=== PATIENT | female | born 1950 | race Caucasian/White ===

== ENCOUNTER → 2016-09-17 | Outpatient (REF) | payer MEDICARE, OTHER ==
[~2016-09-17] MED LIST: COUM2.5T11 PO; LEVO100T5 PO; OXYC-299 PO; TRAM50TA2 PO
== END ==
LOC: M LABDRAW1 11:39
PROVIDERS: ATTEND Internal Medicine Endocrinology, Diabetes & Metabolism
DX: E89.0 Postprocedural hypothyroidism (principal)

== ENCOUNTER → 2016-11-03 | Outpatient (REF) | payer MEDICARE, OTHER ==
[~2016-11-03] MED LIST changes: -COUM2.5T11 PO; +COUM2.5T17 PO; +OXYC-141 PO; -OXYC-299 PO
== END ==
LOC: M LABDRAW1 11:33
PROVIDERS: ATTEND Internal Medicine Endocrinology, Diabetes & Metabolism
DX: E89.0 Postprocedural hypothyroidism (principal)

== ENCOUNTER → 2017-02-24 | Outpatient (REF) | payer MEDICARE, OTHER | LOC: M LABDRAW1 13:15 | PROVIDERS: ATTEND Internal Medicine Endocrinology, Diabetes & Metabolism | DX: E89.0 Postprocedural hypothyroidism (principal) ==

== ENCOUNTER → 2017-04-22 | Outpatient (REF) | payer MEDICARE, OTHER ==
[2017-04-28 00:07] LABS: THYROID STIMULATING IMMUNOGLOB 531 % (0-139)
== END ==
LOC: M LABDRAW1 11:48
DX: E05.00 Thyrotoxicosis with diffuse goiter without thyrotoxic crisis or storm (principal)
CPT/HCPCS: 84445

== ENCOUNTER → 2017-07-06 | Outpatient (REF) | payer MEDICARE, OTHER | LOC: M LABDRAW1 15:35 | DX: E07.9 Disorder of thyroid, unspecified (principal) | CPT/HCPCS: 84443 ==

== ENCOUNTER → 2017-07-06 | Outpatient (REF) | payer MEDICARE, OTHER | LOC: M LABDRAW1 15:37 | DX: E89.0 Postprocedural hypothyroidism (principal) ==

== ENCOUNTER → 2017-09-06 | Outpatient (REF) | payer MEDICARE, OTHER ==
[2017-09-08 00:06] LABS: THYROID STIMULATING IMMUNOGLOB 2.43 IU/L (0.00-0.55)
== END ==
LOC: M LABDRAW1 11:04
DX: H57.8 Other specified disorders of eye and adnexa (principal)
CPT/HCPCS: 84445

== ENCOUNTER → 2017-11-17 | Outpatient (REF) | payer MEDICARE, OTHER ==
[2017-11-17 14:23] LABS: THYROID STIMULATING HORMONE 0.844 uIU/ML (0.358-3.740)
== END ==
LOC: M LABDRAW1 13:21
DX: E89.0 Postprocedural hypothyroidism (principal)

== ENCOUNTER → 2017-11-17 | Outpatient (REF) | payer MEDICARE, OTHER ==
[2017-11-19 00:11] LABS: THYROID STIMULATING IMMUNOGLOB 2.02 IU/L (0.00-0.55)
== END ==
LOC: M LABDRAW1 13:24
DX: E05.00 Thyrotoxicosis with diffuse goiter without thyrotoxic crisis or storm (principal); E89.0 Postprocedural hypothyroidism
CPT/HCPCS: 84443

== ENCOUNTER → 2018-03-15 | Outpatient (REF) | payer MEDICARE, OTHER ==
[2018-03-15 15:49] LABS: HEMATOCRIT 41.2 % (36.0-47.0); HEMOGLOBIN 13.8 g/dl (12.0-15.5); MEAN CORPUSCULAR HEMOGLOBIN 31.3 pg (27.0-33.0); MEAN CORPUSCULAR HGB CONC 33.5 g/dl (32.0-36.5); MEAN CORPUSCULAR VOLUME 93.4 fl (80.0-96.0); RED BLOOD COUNT 4.41 10^6/uL (4.00-5.40); RED CELL DISTRIBUTION WIDTH 12.4 % (11.5-14.5); WHITE BLOOD COUNT 5.3 10^3/uL (4.0-10.0)
[2018-03-15 16:12] LABS: ALBUMIN 4.1 GM/DL (3.2-5.2); ALBUMIN/GLOBULIN RATIO 1.28 (1.00-1.93); ALKALINE PHOSPHATASE 67 U/L (45-117); ALT/SGPT 28 U/L (12-78); ANION GAP 2 MEQ/L (8-16); AST/SGOT 18 U/L (7-37); BILIRUBIN,TOTAL 0.8 MG/DL (0.2-1.0); BLOOD UREA NITROGEN 20 MG/DL (7-18); CARBON DIOXIDE LEVEL 32 MEQ/L (21-32); CHLORIDE LEVEL 107 MEQ/L (98-107); CHOLESTEROL LEVEL 240 MG/DL (<200); CREATININE FOR GFR 0.66 MG/DL (0.55-1.30); GLOMERULAR FILTRATION RATE > 60.0 (>45); GLUCOSE, FASTING 96 MG/DL (70-100); HDL CHOLESTEROL 64 MG/DL (>40); LDL CHOLESTEROL 146 MG/DL (<100); NON-HDL-C 176 MG/DL; POTASSIUM SERUM 4.1 MEQ/L (3.5-5.1); SODIUM LEVEL 141 MEQ/L (136-145); TOTAL PROTEIN 7.3 GM/DL (6.4-8.2); TRIGLYCERIDES LEVEL 152 MG/DL (<150)
[2018-03-15 16:21] LABS: POS COUNT POS FLAG; SUSPECT SAMPLE POS FLAG
[2018-03-15 17:12] LABS: TOTAL 25(OH) VITAMIN D 20.6 NG/ML (30.0-100.0)
== END ==
LOC: M SFHCPLAZ 14:39
DX: E78.00 Pure hypercholesterolemia, unspecified (principal); E05.00 Thyrotoxicosis with diffuse goiter without thyrotoxic crisis or storm; M85.80 Other specified disorders of bone density and structure, unspecified site; E03.9 Hypothyroidism, unspecified; R05 Cough; Z23 Encounter for immunization
CPT/HCPCS: 80053

== ENCOUNTER → 2018-03-15 | Outpatient (REF) | payer MEDICARE, OTHER ==
[2018-03-18 00:06] LABS: THYROID STIMULATING IMMUNOGLOB 1.87 IU/L (0.00-0.55)
== END ==
LOC: M LABDRAWP 15:42
DX: E07.9 Disorder of thyroid, unspecified (principal); E05.00 Thyrotoxicosis with diffuse goiter without thyrotoxic crisis or storm (principal); Z23 Encounter for immunization; E78.00 Pure hypercholesterolemia, unspecified; M85.80 Other specified disorders of bone density and structure, unspecified site; E03.9 Hypothyroidism, unspecified; R05 Cough
CPT/HCPCS: 80053; 84445

== ENCOUNTER → 2018-06-20 | Outpatient (REF) | payer MEDICARE, OTHER ==
[2018-06-20 19:25] LABS: FREE T4 0.99 NG/DL (0.76-1.46); THYROID STIMULATING HORMONE 1.93 uIU/ML (0.358-3.740)
== END ==
LOC: M LABDRAW1 17:38
PROVIDERS: ATTEND Internal Medicine Endocrinology, Diabetes & Metabolism
DX: E89.0 Postprocedural hypothyroidism (principal)

== ENCOUNTER → 2018-10-11 | Outpatient (REF) | payer MEDICARE, OTHER | LOC: M LAB REF 15:38 | PROVIDERS: ATTEND Ophthalmology | DX: E05.00 Thyrotoxicosis with diffuse goiter without thyrotoxic crisis or storm (principal) ==

== ENCOUNTER → 2019-02-07 | Outpatient (REF) | payer MEDICARE, OTHER | LOC: M LABDRAW1 09:40 | PROVIDERS: ATTEND Internal Medicine Endocrinology, Diabetes & Metabolism | DX: E89.0 Postprocedural hypothyroidism (principal) ==

== ENCOUNTER → 2019-03-27 | Outpatient (REF) | payer MEDICARE, OTHER ==
[2019-03-27 12:22] LABS: HEMATOCRIT 39.2 % (36.0-47.0); HEMOGLOBIN 12.8 g/dl (12.0-15.5); MEAN CORPUSCULAR HEMOGLOBIN 31.3 pg (27.0-33.0); MEAN CORPUSCULAR HGB CONC 32.7 g/dl (32.0-36.5); MEAN CORPUSCULAR VOLUME 95.8 fl (80.0-96.0); RED BLOOD COUNT 4.09 10^6/uL (4.00-5.40); WHITE BLOOD COUNT 4.3 10^3/uL (4.0-10.0)
[2019-03-27 12:28] LABS: ALBUMIN 3.7 GM/DL (3.2-5.2); ALT/SGPT 23 U/L (12-78); BILIRUBIN,TOTAL 0.7 MG/DL (0.2-1.0); BLOOD UREA NITROGEN 16 MG/DL (7-18); CALCIUM LEVEL 8.1 MG/DL (8.8-10.2); CARBON DIOXIDE LEVEL 29 MEQ/L (21-32); CHLORIDE LEVEL 109 MEQ/L (98-107); CHOLESTEROL LEVEL 217 MG/DL (<200); CHOLESTEROL RISK RATIO 2.782 (<5); CREATININE FOR GFR 0.59 MG/DL (0.55-1.30); GLOMERULAR FILTRATION RATE > 60.0 (>39); GLUCOSE, FASTING 103 MG/DL (70-100); HDL CHOLESTEROL 78 MG/DL (>40); LDL CHOLESTEROL 123 MG/DL (<100); NON-HDL-C 139 MG/DL; SODIUM LEVEL 141 MEQ/L (136-145); TOTAL PROTEIN 6.8 GM/DL (6.4-8.2); TRIGLYCERIDES LEVEL 80 MG/DL (<150)
[2019-03-27 13:17] LABS: TOTAL 25(OH) VITAMIN D 21.2 NG/ML (30.0-100.0)
== END ==
LOC: M LABDRAW1 12:04
PROVIDERS: ATTEND Internal Medicine
DX: E78.00 Pure hypercholesterolemia, unspecified (principal); M85.80 Other specified disorders of bone density and structure, unspecified site

== ENCOUNTER → 2019-07-03 | Outpatient (REF) | payer MEDICARE, OTHER, BC | LOC: M LABDRAW1 12:57 | PROVIDERS: ATTEND Ophthalmology | DX: E05.00 Thyrotoxicosis with diffuse goiter without thyrotoxic crisis or storm (principal) ==

== ENCOUNTER → 2019-10-10 | Outpatient (CLI) | payer MEDICARE, OTHER, BC | LOC: M WUC 10:32 | PROVIDERS: ATTEND Internal Medicine Endocrinology, Diabetes & Metabolism | DX: E89.0 Postprocedural hypothyroidism (principal) ==

== ENCOUNTER → 2020-02-29 | Outpatient (CLI) | payer MEDICARE, OTHER, BC | LOC: M WUC 11:23 | PROVIDERS: ATTEND Ophthalmology | DX: E05.00 Thyrotoxicosis with diffuse goiter without thyrotoxic crisis or storm (principal) ==

== ENCOUNTER 2020-04-05 10:57 | Outpatient (CLI) | payer MEDICARE, BC, OTHER ==
[2020-04-05] MEDS ORDERED: TEPROTUMUMAB TRBW IV ONE (11:00)
[2020-04-05] MEDS ORDERED: NS IV ONE (11:00)
[2020-04-05] MEDS ORDERED: methylPREDNISolone 250 MG in D5W 100 ML IV PRN (11:00)
[2020-04-05 11:51] VITALS: BP 166/76
[2020-04-05 14:07] VITALS: BP 153/70
== END 2020-04-05 14:09 | disposition home or self-care (01) ==
LOC: M INFU 10:57
PROVIDERS: ATTEND Ophthalmology
DX: H05.242 Constant exophthalmos, left eye (principal)
CPT/HCPCS: 96365; J3241

== ENCOUNTER → 2020-04-29 | Outpatient (CLI) | payer MEDICARE, OTHER, BC | LOC: M WUC 14:41 | PROVIDERS: ATTEND Internal Medicine Endocrinology, Diabetes & Metabolism | DX: E89.0 Postprocedural hypothyroidism (principal) ==

== ENCOUNTER 2020-08-09 08:03 | Outpatient (CLI) | payer MEDICARE, BC, OTHER ==
[~2020-08-09 08:03] MED LIST changes: +NS IV ONE; +TEPROTUMUMAB TRBW IV ONE; +methylPREDNISolone 250 MG in D5W 100 ML IV PRN
[2020-08-09 08:33] VITALS: BP 174/100
[2020-08-09] MEDS ORDERED: PRED5PAK PO (08:46)
[2020-08-09 09:34] VITALS: BP 145/79
[2020-08-09 10:28] VITALS: BP 158/78
[2020-08-09 11:20] VITALS: BP 175/83
== END 2020-08-09 11:20 | disposition home or self-care (01) ==
LOC: M INFU 08:03
PROVIDERS: ATTEND Ophthalmology
DX: H05.242 Constant exophthalmos, left eye (principal)
CPT/HCPCS: 96365; J3241

== ENCOUNTER 2020-08-30 08:06 | Outpatient (CLI) | payer MEDICARE, BC, OTHER ==
[~2020-08-30] VITALS: Ht 162.6 cm; Wt 74.5 kg
[~2020-08-30 08:06] MED LIST changes: +PRED5PAK PO
[2020-08-30 08:30] VITALS: BP 174/80
[2020-08-30 10:36] VITALS: BP 158/80
== END 2020-08-30 10:40 | disposition home or self-care (01) ==
LOC: M INFU 08:06
PROVIDERS: ATTEND Ophthalmology
DX: H05.242 Constant exophthalmos, left eye (principal)
CPT/HCPCS: 96365; J3241

== ENCOUNTER 2020-09-20 08:23 | Outpatient (CLI) | payer MEDICARE, BC, OTHER ==
[~2020-09-20] VITALS: Ht 162.6 cm; Wt 72.7 kg
[2020-09-20 08:25] VITALS: BP 173/82
[2020-09-20 10:30] VITALS: BP 158/78
== END 2020-09-20 10:30 | disposition home or self-care (01) ==
LOC: M INFU 08:23
PROVIDERS: ATTEND Ophthalmology
DX: H05.242 Constant exophthalmos, left eye (principal)
CPT/HCPCS: 96365; J3241

== ENCOUNTER 2020-10-11 07:36 | Outpatient (CLI) | payer MEDICARE, BC, OTHER ==
[~2020-10-11] VITALS: Ht 162.6 cm; Wt 72.6 kg
[2020-10-11] MEDS ORDERED: methylPREDNISolone 250 MG in D5W 100 ML IV ONE (08:00)
[2020-10-11] MEDS ORDERED: TEPROTUMUMAB TRBW IV ONE (08:00)
[2020-10-11] MEDS ORDERED: NS IV ONE (08:00)
[2020-10-11 08:20] VITALS: BP 148/90
== END 2020-10-11 10:15 | disposition home or self-care (01) ==
LOC: M INFU 07:36
PROVIDERS: ATTEND Ophthalmology
DX: H05.242 Constant exophthalmos, left eye (principal); E78.00 Pure hypercholesterolemia, unspecified; Z11.59 Encounter for screening for other viral diseases; E89.0 Postprocedural hypothyroidism
CPT/HCPCS: 36415; 80053; 80061; 83519; 84443; 84445; 85025; 96413; G0472; J3241

== ENCOUNTER → 2020-10-11 | Outpatient (CLI) | payer MEDICARE, BC, OTHER ==
[~2020-10-11] MED LIST changes: -NS IV ONE; -TEPROTUMUMAB TRBW IV ONE; -methylPREDNISolone 250 MG in D5W 100 ML IV PRN
[2020-10-15 16:09] LABS: THYROID STIMULATING IMMUNOGLOB 0.14 IU/L (0.00-0.55); TSH RECEPTOR ASSAY <1.10 IU/L (0.00-1.75)
== END ==
LOC: M LAB 07:40
PROVIDERS: ATTEND Internal Medicine Endocrinology, Diabetes & Metabolism
DX: E89.0 Postprocedural hypothyroidism (principal)

== ENCOUNTER → 2020-10-11 | Outpatient (CLI) | payer MEDICARE, BC, OTHER ==
[2020-10-11 09:18] LABS: BASO % 0.2 % (0.0-1.0); EOS # 0.1 10^3/uL (0.0-0.5); EOS % 1.5 % (0.0-3.0); HEMOGLOBIN 13.3 g/dl (12.0-15.5); LYMPH # 1.4 10^3/uL (1.5-5.0); LYMPH % 25.6 % (24.0-44.0); MEAN CORPUSCULAR HEMOGLOBIN 31.7 pg (27.0-33.0); MEAN CORPUSCULAR HGB CONC 33.3 g/dl (32.0-36.5); MEAN CORPUSCULAR VOLUME 95.2 fl (80.0-96.0); MONO # 0.4 10^3/uL (0.0-0.8); MONO % 6.5 % (2.0-8.0); NEUTROPHILS # 3.6 10^3/uL (1.5-8.5); NEUTROPHILS % 65.6 % (36.0-66.0); WHITE BLOOD COUNT 5.4 10^3/uL (4.0-10.0)
[2020-10-11 09:44] LABS: ALT/SGPT 32 U/L (12-78); BILIRUBIN,TOTAL 0.6 MG/DL (0.2-1.0); BLOOD UREA NITROGEN 23 MG/DL (7-18); CALCIUM LEVEL 8.5 MG/DL (8.8-10.2); CARBON DIOXIDE LEVEL 31 MEQ/L (21-32); CHLORIDE LEVEL 105 MEQ/L (98-107); CHOLESTEROL LEVEL 205 MG/DL (<200); CHOLESTEROL RISK RATIO 2.928 (<5); CREATININE FOR GFR 0.63 MG/DL (0.55-1.30); GLOMERULAR FILTRATION RATE > 60.0 (>39); GLUCOSE, FASTING 122 MG/DL (70-100); HDL CHOLESTEROL 70 MG/DL (>40); LDL CHOLESTEROL 122 MG/DL (<100); NON-HDL-C 135 MG/DL; SODIUM LEVEL 139 MEQ/L (136-145); TOTAL PROTEIN 7.2 GM/DL (6.4-8.2); TRIGLYCERIDES LEVEL 66 MG/DL (<150)
== END ==
LOC: M LAB 07:38
PROVIDERS: ATTEND Internal Medicine
DX: E78.00 Pure hypercholesterolemia, unspecified (principal); Z11.59 Encounter for screening for other viral diseases; E03.9 Hypothyroidism, unspecified
CPT/HCPCS: 36415; 80053; 80061; 85025; G0472

== ENCOUNTER 2020-11-01 08:18 | Outpatient (CLI) | payer MEDICARE, BC, OTHER ==
[~2020-11-01] VITALS: Ht 162.6 cm; Wt 72.0 kg
[~2020-11-01 08:18] MED LIST changes: +NS IV ONE; +TEPROTUMUMAB TRBW IV ONE; +methylPREDNISolone 250 MG in D5W 100 ML IV PRN
[2020-11-01 08:35] VITALS: BP 147/73
[2020-11-01 08:58] VITALS: BP 147/73
[2020-11-01 11:02] VITALS: BP 154/81
== END 2020-11-01 11:00 | disposition home or self-care (01) ==
LOC: M INFU 08:18
PROVIDERS: ATTEND Ophthalmology
DX: H05.242 Constant exophthalmos, left eye (principal)
CPT/HCPCS: 96365; J3241

== ENCOUNTER 2020-11-22 08:20 | Outpatient (CLI) | payer MEDICARE, BC, OTHER ==
[~2020-11-22] VITALS: Ht 162.6 cm; Wt 72.0 kg
[2020-11-22 08:20] VITALS: BP 162/90
[2020-11-22 08:39] VITALS: BP 162/90
[2020-11-22 10:52] VITALS: BP 159/72
== END 2020-11-22 10:55 | disposition home or self-care (01) ==
LOC: M INFU 08:20
PROVIDERS: ATTEND Ophthalmology
DX: H05.242 Constant exophthalmos, left eye (principal)
CPT/HCPCS: 96365; J3241

== ENCOUNTER 2020-12-13 08:27 | Outpatient (CLI) | payer MEDICARE, BC, OTHER ==
[~2020-12-13] VITALS: Ht 162.6 cm; Wt 75.0 kg
[2020-12-13 08:30] VITALS: BP 168/88
[2020-12-13 10:43] VITALS: BP 142/76
== END 2020-12-13 11:20 | disposition home or self-care (01) ==
LOC: M INFU 08:27
PROVIDERS: ATTEND Ophthalmology
DX: H05.242 Constant exophthalmos, left eye (principal)
CPT/HCPCS: 96365; J3241

== ENCOUNTER → 2021-02-06 | Outpatient (CLI) | payer MEDICARE, OTHER, BC ==
[~2021-02-06] MED LIST changes: -NS IV ONE; -TEPROTUMUMAB TRBW IV ONE; -methylPREDNISolone 250 MG in D5W 100 ML IV PRN
[2021-02-08 06:09] LABS: THYROID STIMULATING IMMUNOGLOB 0.16 IU/L (0.00-0.55); TSH RECEPTOR ASSAY <1.10 IU/L (0.00-1.75)
== END ==
LOC: M WUC 09:33
PROVIDERS: ATTEND Internal Medicine Endocrinology, Diabetes & Metabolism
DX: H05.89 Other disorders of orbit (principal)

== ENCOUNTER → 2021-04-09 | Outpatient (CLI) | payer MEDICARE, OTHER, BC ==
[2021-04-09 12:34] LABS: ALBUMIN 3.7 GM/DL (3.2-5.2); ALT/SGPT 36 U/L (12-78); BILIRUBIN,TOTAL 0.7 MG/DL (0.2-1.0); BLOOD UREA NITROGEN 18 MG/DL (7-18); CALCIUM LEVEL 8.8 MG/DL (8.8-10.2); CARBON DIOXIDE LEVEL 31 MEQ/L (21-32); CHLORIDE LEVEL 109 MEQ/L (98-107); CHOLESTEROL LEVEL 184 MG/DL (<200); CHOLESTEROL RISK RATIO 2.875 (<5); CREATININE FOR GFR 0.64 MG/DL (0.55-1.30); GLOMERULAR FILTRATION RATE > 60.0 (>39); GLUCOSE, FASTING 107 MG/DL (70-100); HDL CHOLESTEROL 64 MG/DL (>40); LDL CHOLESTEROL 105 MG/DL (<100); NON-HDL-C 120 MG/DL; POTASSIUM SERUM 4.6 MEQ/L (3.5-5.1); SODIUM LEVEL 143 MEQ/L (136-145); TRIGLYCERIDES LEVEL 74 MG/DL (<150)
== END ==
LOC: M WUC 08:58
PROVIDERS: ATTEND Nurse Practitioner Adult Health
DX: E78.00 Pure hypercholesterolemia, unspecified (principal)

== ENCOUNTER → 2021-08-13 | Outpatient (CLI) | payer MEDICARE, OTHER, BC | LOC: M PLALAB 13:37 | PROVIDERS: ATTEND Internal Medicine Endocrinology, Diabetes & Metabolism | DX: M05.89 Other rheumatoid arthritis with rheumatoid factor of multiple sites (principal) ==

== ENCOUNTER 2021-09-05 08:47 | Outpatient (CLI) | payer MEDICARE, BC, OTHER ==
[~2021-09-05] VITALS: Ht 162.6 cm; Wt 73.6 kg
[~2021-09-05 08:47] MED LIST changes: +NS IV ONE; +TEPROTUMUMAB TRBW IV ONE
[2021-09-05 09:00] VITALS: BP 180/95
[2021-09-05] MEDS ORDERED: TEPROTUMUMAB TRBW IV ONE (10:30)
[2021-09-05] MEDS ORDERED: NS IV ONE (10:30)
[2021-09-05 12:25] VITALS: BP 168/81
== END 2021-09-05 12:25 | disposition home or self-care (01) ==
LOC: M INFU 08:47
PROVIDERS: ATTEND Ophthalmology Ophthalmic Plastic and Reconstructive Surgery
DX: E05.00 Thyrotoxicosis with diffuse goiter without thyrotoxic crisis or storm (principal)
CPT/HCPCS: 96365; 96366; J3241

== ENCOUNTER 2021-09-26 13:14 | Outpatient (CLI) | payer MEDICARE, BC, OTHER ==
[~2021-09-26] VITALS: Ht 165.1 cm; Wt 73.6 kg
[2021-09-26 13:20] VITALS: BP 170/77
[2021-09-26 15:10] VITALS: BP 164/77
== END 2021-09-26 15:15 | disposition home or self-care (01) ==
LOC: M INFU 13:14
PROVIDERS: ATTEND Ophthalmology Ophthalmic Plastic and Reconstructive Surgery
DX: E05.00 Thyrotoxicosis with diffuse goiter without thyrotoxic crisis or storm (principal)
CPT/HCPCS: 96365; J3241

== ENCOUNTER 2021-10-17 11:50 | Outpatient (CLI) | payer MEDICARE, BC, OTHER ==
[~2021-10-17] VITALS: Ht 165.1 cm; Wt 73.6 kg
[2021-10-17 11:50] VITALS: BP 165/84
[2021-10-17] MEDS ORDERED: VITAMIN D PO (12:02)
[2021-10-17 13:40] VITALS: BP 176/78
== END 2021-10-17 13:40 | disposition home or self-care (01) ==
LOC: M INFU 11:50
PROVIDERS: ATTEND Ophthalmology Ophthalmic Plastic and Reconstructive Surgery
DX: E05.00 Thyrotoxicosis with diffuse goiter without thyrotoxic crisis or storm (principal)
CPT/HCPCS: 96365; J3241

== ENCOUNTER → 2021-10-28 | Outpatient (REF) | payer MEDICARE, BC, OTHER ==
[~2021-10-28] MED LIST changes: -NS IV ONE; -TEPROTUMUMAB TRBW IV ONE; +VITAMIN D PO
[2021-10-28 12:44] LABS: BASO % 0.2 % (0.0-1.0); EOS # 0.1 10^3/uL (0.0-0.5); EOS % 1.7 % (0.0-3.0); HEMATOCRIT 41.1 % (36.0-47.0); HEMOGLOBIN 13.5 g/dl (12.0-15.5); LYMPH # 1.5 10^3/uL (1.5-5.0); LYMPH % 32.6 % (24.0-44.0); MEAN CORPUSCULAR HEMOGLOBIN 31.1 pg (27.0-33.0); MEAN CORPUSCULAR HGB CONC 32.8 g/dl (32.0-36.5); MEAN CORPUSCULAR VOLUME 94.7 fl (80.0-96.0); MONO # 0.4 10^3/uL (0.0-0.8); MONO % 9.1 % (2.0-8.0); NEUTROPHILS # 2.6 10^3/uL (1.5-8.5); NEUTROPHILS % 56.2 % (36.0-66.0); RED BLOOD COUNT 4.34 10^6/uL (4.00-5.40); WHITE BLOOD COUNT 4.6 10^3/uL (4.0-10.0)
[2021-10-28 14:20] LABS: ALBUMIN 3.9 GM/DL (3.2-5.2); ALT/SGPT 41 U/L (12-78); BILIRUBIN,TOTAL 1.3 MG/DL (0.2-1.0); BLOOD UREA NITROGEN 19 MG/DL (7-18); CALCIUM LEVEL 9.2 MG/DL (8.8-10.2); CARBON DIOXIDE LEVEL 28 MEQ/L (21-32); CHLORIDE LEVEL 107 MEQ/L (98-107); CREATININE FOR GFR 0.75 MG/DL (0.55-1.30); GLOMERULAR FILTRATION RATE > 60.0 (>39); GLUCOSE, FASTING 120 MG/DL (70-100); POTASSIUM SERUM 4.2 MEQ/L (3.5-5.1); SODIUM LEVEL 139 MEQ/L (136-145); TOTAL PROTEIN 7.4 GM/DL (6.4-8.2)
== END ==
LOC: M WUC 08:59
PROVIDERS: ATTEND Internal Medicine
DX: E78.00 Pure hypercholesterolemia, unspecified (principal); Z87.442 Personal history of urinary calculi

== ENCOUNTER 2021-11-07 08:25 | Outpatient (CLI) | payer MEDICARE, BC, OTHER ==
[~2021-11-07] VITALS: Ht 195.6 cm; Wt 73.6 kg
[2021-11-07 08:25] VITALS: BP 180/80
[~2021-11-07 08:25] MED LIST changes: +NS IV ONE; +TEPROTUMUMAB TRBW IV ONE
[2021-11-07 10:45] VITALS: BP 180/80
== END 2021-11-11 10:45 | disposition home or self-care (01) ==
LOC: M INFU 08:25
PROVIDERS: ATTEND Ophthalmology Ophthalmic Plastic and Reconstructive Surgery
DX: E05.00 Thyrotoxicosis with diffuse goiter without thyrotoxic crisis or storm (principal)
CPT/HCPCS: 96365; J3241

== ENCOUNTER → 2021-11-26 | Outpatient (CLI) | payer MEDICARE, BC, OTHER ==
[~2021-11-26] MED LIST changes: -NS IV ONE; -TEPROTUMUMAB TRBW IV ONE
[2021-11-26 18:03] LABS: BASO % 0.2 % (0.0-1.0); EOS # 0.1 10^3/uL (0.0-0.5); EOS % 1.5 % (0.0-3.0); HEMATOCRIT 39.6 % (36.0-47.0); HEMOGLOBIN 13.1 g/dl (12.0-15.5); LYMPH # 1.7 10^3/uL (1.5-5.0); LYMPH % 36.4 % (24.0-44.0); MEAN CORPUSCULAR HEMOGLOBIN 31.3 pg (27.0-33.0); MEAN CORPUSCULAR HGB CONC 33.1 g/dl (32.0-36.5); MEAN CORPUSCULAR VOLUME 94.5 fl (80.0-96.0); MONO # 0.4 10^3/uL (0.0-0.8); MONO % 8.2 % (2.0-8.0); NEUTROPHILS # 2.5 10^3/uL (1.5-8.5); NEUTROPHILS % 53.3 % (36.0-66.0); RED BLOOD COUNT 4.19 10^6/uL (4.00-5.40); WHITE BLOOD COUNT 4.7 10^3/uL (4.0-10.0)
[2021-11-26 19:09] LABS: ERYTHROCYTE SEDIMENTATION RATE 18 mm/hr (0-30)
== END ==
LOC: M PLALAB 15:55
PROVIDERS: ATTEND Orthopaedic Surgery
DX: M25.461 Effusion, right knee (principal)

== ENCOUNTER 2021-11-28 09:40 | Outpatient (CLI) | payer MEDICARE, BC, OTHER ==
[~2021-11-28] VITALS: Ht 165.1 cm; Wt 70.5 kg
[2021-11-28 09:40] VITALS: BP 190/90
[2021-11-28 10:00] VITALS: BP 174/92
[2021-11-28] MEDS ORDERED: TEPROTUMUMAB TRBW IV ONE (10:00)
[2021-11-28] MEDS ORDERED: NS IV ONE (10:00)
[2021-11-28 10:20] VITALS: BP 183/93
[2021-11-28 11:30] VITALS: BP 173/97
[2021-11-28 12:15] VITALS: BP 172/98
== END 2021-11-28 12:10 | disposition home or self-care (01) ==
LOC: M INFU 09:40
PROVIDERS: ATTEND Ophthalmology Ophthalmic Plastic and Reconstructive Surgery
DX: E05.00 Thyrotoxicosis with diffuse goiter without thyrotoxic crisis or storm (principal)
CPT/HCPCS: 96365; J3241

== ENCOUNTER 2021-12-19 12:28 | Outpatient (CLI) | payer MEDICARE, BC, OTHER ==
[~2021-12-19] VITALS: Ht 165.1 cm; Wt 73.6 kg
[2021-12-19] MEDS ORDERED: NS IV ONE ×2 (12:30)
[2021-12-19] MEDS ORDERED: TEPROTUMUMAB TRBW IV ONE ×2 (12:30)
[2021-12-19 13:00] VITALS: BP 151/79
[2021-12-19 14:49] VITALS: BP 160/88
== END 2021-12-19 14:40 | disposition home or self-care (01) ==
LOC: M INFU 12:28
PROVIDERS: ATTEND Ophthalmology Ophthalmic Plastic and Reconstructive Surgery
DX: E05.00 Thyrotoxicosis with diffuse goiter without thyrotoxic crisis or storm (principal)
CPT/HCPCS: 96365; J3241

== ENCOUNTER 2022-01-09 12:40 | Outpatient (CLI) | payer MEDICARE, BC, OTHER ==
[~2022-01-09] VITALS: Ht 167.6 cm; Wt 73.9 kg
[2022-01-09 12:40] VITALS: BP 163/72
[~2022-01-09 12:40] MED LIST changes: +NS IV ONE; +TEPROTUMUMAB TRBW IV ONE
[2022-01-09 15:05] VITALS: BP 146/72
== END 2022-01-09 15:05 | disposition home or self-care (01) ==
LOC: M INFU 12:40
PROVIDERS: ATTEND Ophthalmology Ophthalmic Plastic and Reconstructive Surgery
DX: E05.00 Thyrotoxicosis with diffuse goiter without thyrotoxic crisis or storm (principal)
CPT/HCPCS: 96365; J3241

== ENCOUNTER 2022-01-30 12:40 | Outpatient (CLI) | payer MEDICARE, BC, OTHER ==
[~2022-01-30] VITALS: Ht 165.1 cm; Wt 73.6 kg
[2022-01-30 12:40] VITALS: BP 133/89
[2022-01-30 14:45] VITALS: BP 145/79
== END 2022-01-30 14:45 | disposition home or self-care (01) ==
LOC: M INFU 12:40
PROVIDERS: ATTEND Ophthalmology Ophthalmic Plastic and Reconstructive Surgery
DX: E05.00 Thyrotoxicosis with diffuse goiter without thyrotoxic crisis or storm (principal)
CPT/HCPCS: 96365; J3241

== ENCOUNTER 2022-02-13 14:46 | Outpatient (RCR) | payer MEDICARE, BC, OTHER ==
[~2022-02-13 14:46] MED LIST changes: -NS IV ONE; -TEPROTUMUMAB TRBW IV ONE
== END 2022-02-16 23:59 | disposition home or self-care (01) ==
LOC: M PT 14:46
PROVIDERS: ATTEND Ophthalmology Ophthalmic Plastic and Reconstructive Surgery
DX: M25.561 Pain in right knee (principal); Z98.890 Other specified postprocedural states

== ENCOUNTER 2022-02-17 13:00 | Outpatient (RCR) | payer MEDICARE, BC, OTHER | END 2022-03-18 | LOC: M PT 13:00 | PROVIDERS: ATTEND Physician Assistant | DX: M25.561 Pain in right knee (principal); Z98.890 Other specified postprocedural states ==

== ENCOUNTER → 2022-04-06 | Outpatient (CLI) | payer MEDICARE, BC, OTHER ==
[2022-04-06 16:54] LABS: FREE T4 1.46 NG/DL (0.89-1.76); THYROID STIMULATING HORMONE 0.278 uIU/ML (0.55-4.78)
== END ==
LOC: M WUC 11:47
PROVIDERS: ATTEND Internal Medicine Endocrinology, Diabetes & Metabolism
DX: E89.0 Postprocedural hypothyroidism (principal)

== ENCOUNTER → 2022-05-05 | Outpatient (CLI) | payer MEDICARE, BC, OTHER ==
[2022-05-05 13:34] LABS: HEMATOCRIT 41.1 % (36.0-47.0); HEMOGLOBIN 13.5 g/dl (12.0-15.5); MEAN CORPUSCULAR HEMOGLOBIN 31.6 pg (27.0-33.0); MEAN CORPUSCULAR HGB CONC 32.8 g/dl (32.0-36.5); MEAN CORPUSCULAR VOLUME 96.3 fl (80.0-96.0); RED BLOOD COUNT 4.27 10^6/uL (4.00-5.40); WHITE BLOOD COUNT 7.1 10^3/uL (4.0-10.0)
[2022-05-05 13:39] LABS: CREATININE, URINE 186.6 MG/DL; MAU/CREAT RATIO 3.7 MCG/MG (0.0-30.0)
[2022-05-05 13:42] LABS: C REACTIVE PROTEIN QUANTITATIV < 0.40 MG/DL (<1.0)
[2022-05-05 13:43] LABS: ALBUMIN 3.9 G/DL (3.2-5.2); ALKALINE PHOSPHATASE 76 U/L (46-116); ALT/SGPT 35 U/L (7.0-40); AST/SGOT 27 U/L (<34); BILIRUBIN,TOTAL 0.9 MG/DL (0.3-1.2); BLOOD UREA NITROGEN 20 MG/DL (9-23); CALCIUM LEVEL 9.1 MG/DL (8.3-10.6); CARBON DIOXIDE LEVEL 31 MMOL/L (20-31); CHLORIDE LEVEL 105 MMOL/L (98-107); CHOLESTEROL LEVEL 210 MG/DL (<200); CHOLESTEROL RISK RATIO 3.18 (<5); CREATININE FOR GFR 0.68 MG/DL (0.55-1.30); FREE T4 1.06 NG/DL (0.89-1.76); GLOMERULAR FILTRATION RATE > 60.0 (>39); GLUCOSE, FASTING 120 MG/DL (74-106); HDL CHOLESTEROL 65.9 MG/DL (>40); LDL CHOLESTEROL 124.9 MG/DL (<100); NON-HDL-C 144 MG/DL; POTASSIUM SERUM 4.3 MMOL/L (3.5-5.1); SODIUM LEVEL 142 MMOL/L (136-145); THYROID STIMULATING HORMONE 1.536 uIU/ML (0.55-4.78); TOTAL PROTEIN 7.2 G/DL (5.7-8.2); TRIGLYCERIDES LEVEL 96 MG/DL (<150); VITAMIN B12 LEVEL 355 PG/ML (211-911)
[2022-05-05 13:44] LABS: TOTAL 25(OH) VITAMIN D 23.6 NG/ML (20.0-100.0)
== END ==
LOC: M WUC 09:38
PROVIDERS: ATTEND Internal Medicine Hematology
DX: E78.00 Pure hypercholesterolemia, unspecified (principal); Z79.899 Other long term (current) drug therapy

== ENCOUNTER → 2022-11-23 | Outpatient (CLI) | payer MEDICARE, BC, OTHER ==
[2022-11-23 14:02] LABS: HEMOGLOBIN A1c 5.4 % (4.0-6.0)
[2022-11-23 14:04] LABS: BASO % 0.2 % (0.0-1.0); CREATININE, URINE 111.5 MG/DL; EOS # 0.1 10^3/uL (0.0-0.5); EOS % 1.3 % (0.0-3.0); HEMOGLOBIN 13.3 g/dl (12.0-15.5); LYMPH # 1.6 10^3/uL (1.5-5.0); LYMPH % 30.3 % (24.0-44.0); MEAN CORPUSCULAR HGB CONC 33.3 g/dl (32.0-36.5); MEAN CORPUSCULAR VOLUME 93.2 fl (80.0-96.0); MONO # 0.5 10^3/uL (0.0-0.8); MONO % 9.2 % (2.0-8.0); NEUTROPHILS # 3.1 10^3/uL (1.5-8.5); NEUTROPHILS % 58.3 % (36.0-66.0); RED BLOOD COUNT 4.29 10^6/uL (4.00-5.40); WHITE BLOOD COUNT 5.3 10^3/uL (4.0-10.0)
[2022-11-23 14:05] LABS: MAU/CREAT RATIO 3.5 MCG/MG (0.0-30.0)
[2022-11-23 14:11] LABS: C REACTIVE PROTEIN QUANTITATIV < 0.40 MG/DL (<1.0)
[2022-11-23 14:12] LABS: FREE T4 1.38 NG/DL (0.89-1.76); THYROID STIMULATING HORMONE 0.917 uIU/ML (0.55-4.78); TOTAL 25(OH) VITAMIN D 28.9 NG/ML (20.0-100.0)
[2022-11-23 14:13] LABS: ALBUMIN 3.9 G/DL (3.2-5.2); ALKALINE PHOSPHATASE 69 U/L (46-116); ALT/SGPT 19 U/L (7.0-40); AST/SGOT 15 U/L (<34); BLOOD UREA NITROGEN 20 MG/DL (9-23); CALCIUM LEVEL 9.4 MG/DL (8.3-10.6); CARBON DIOXIDE LEVEL 29 MMOL/L (20-31); CHLORIDE LEVEL 104 MMOL/L (98-107); CHOLESTEROL LEVEL 200 MG/DL (<200); CHOLESTEROL RISK RATIO 2.78 (<5); CREATININE FOR GFR 0.56 MG/DL (0.55-1.30); GLOMERULAR FILTRATION RATE > 60.0 (>39); GLUCOSE, FASTING 96 MG/DL (74-106); HDL CHOLESTEROL 71.9 MG/DL (>40); LDL CHOLESTEROL 113.7 MG/DL (<100); NON-HDL-C 128.1 MG/DL; POTASSIUM SERUM 4.5 MMOL/L (3.5-5.1); SODIUM LEVEL 141 MMOL/L (136-145); TOTAL PROTEIN 6.9 G/DL (5.7-8.2); TRIGLYCERIDES LEVEL 72 MG/DL (<150)
== END ==
LOC: M PLALAB 11:07
PROVIDERS: ATTEND Internal Medicine Hematology
DX: E05.00 Thyrotoxicosis with diffuse goiter without thyrotoxic crisis or storm (principal); E03.9 Hypothyroidism, unspecified; R73.03 Prediabetes; I10 Essential (primary) hypertension; E78.00 Pure hypercholesterolemia, unspecified; E55.9 Vitamin D deficiency, unspecified

== ENCOUNTER → 2023-06-21 | Outpatient (CLI) | payer MEDICARE, BC, OTHER ==
[2023-06-21 13:23] LABS: FREE T4 1.5 NG/DL (0.89-1.76)
[2023-06-21 13:24] LABS: THYROID STIMULATING HORMONE 1.731 uIU/ML (0.55-4.78)
== END ==
LOC: M WUC 10:49
PROVIDERS: ATTEND Internal Medicine Endocrinology, Diabetes & Metabolism
DX: E89.0 Postprocedural hypothyroidism (principal)

== ENCOUNTER → 2023-06-21 | Outpatient (CLI) | payer MEDICARE, BC, OTHER ==
[2023-06-21 12:57] LABS: HEMATOCRIT 40.3 % (36.0-47.0); HEMOGLOBIN 13.3 g/dl (12.0-15.5); MEAN CORPUSCULAR HEMOGLOBIN 30.8 pg (27.0-33.0); MEAN CORPUSCULAR VOLUME 93.3 fl (80.0-96.0); RED BLOOD COUNT 4.32 10^6/uL (4.00-5.40); WHITE BLOOD COUNT 7.7 10^3/uL (4.0-10.0)
[2023-06-21 13:18] LABS: CREATININE, URINE 110.9 MG/DL; MALB URINE SIEMENS < 3.0 MG/L; MAU/CREAT RATIO 2.7 MCG/MG (0.0-30.0)
[2023-06-21 13:21] LABS: C REACTIVE PROTEIN QUANTITATIV < 0.40 MG/DL (<1.0)
[2023-06-21 13:23] LABS: ALBUMIN 3.9 G/DL (3.2-5.2); ALKALINE PHOSPHATASE 63 U/L (46-116); ALT/SGPT 20 U/L (7.0-40); AST/SGOT 21 U/L (<34); BILIRUBIN,TOTAL 0.8 MG/DL (0.3-1.2); BLOOD UREA NITROGEN 14 MG/DL (9-23); CALCIUM LEVEL 8.4 MG/DL (8.3-10.6); CARBON DIOXIDE LEVEL 31 MMOL/L (20-31); CHLORIDE LEVEL 106 MMOL/L (98-107); CHOLESTEROL LEVEL 212 MG/DL (<200); CHOLESTEROL RISK RATIO 3.31 (<5); CREATININE FOR GFR 0.56 MG/DL (0.55-1.30); FREE T4 1.39 NG/DL (0.89-1.76); GLOMERULAR FILTRATION RATE > 60.0 (>39); GLUCOSE, FASTING 97 MG/DL (74-106); HDL CHOLESTEROL 63.9 MG/DL (>40); LDL CHOLESTEROL 129.9 MG/DL (<100); NON-HDL-C 148.1 MG/DL; POTASSIUM SERUM 3.9 MMOL/L (3.5-5.1); SODIUM LEVEL 139 MMOL/L (136-145); THYROID STIMULATING HORMONE 1.644 uIU/ML (0.55-4.78); TOTAL PROTEIN 7.3 G/DL (5.7-8.2); TRIGLYCERIDES LEVEL 91 MG/DL (<150); VITAMIN B12 LEVEL 293 PG/ML (211-911)
[2023-06-21 13:24] LABS: TOTAL 25(OH) VITAMIN D 23.9 NG/ML (20.0-100.0)
[2023-06-21 13:28] LABS: HEMOGLOBIN A1c 5.6 % (4.0-6.0)
== END ==
LOC: M WUC 10:47
PROVIDERS: ATTEND Internal Medicine Hematology
DX: E78.00 Pure hypercholesterolemia, unspecified (principal); M85.80 Other specified disorders of bone density and structure, unspecified site; L60.1 Onycholysis; E89.0 Postprocedural hypothyroidism; Z79.899 Other long term (current) drug therapy

== ENCOUNTER → 2023-07-28 | Outpatient (CLI) | payer MEDICARE, BC | LOC: M WHC 13:30 | PROVIDERS: ATTEND Internal Medicine Endocrinology, Diabetes & Metabolism | DX: M85.89 Other specified disorders of bone density and structure, multiple sites (principal) ==

== ENCOUNTER → 2023-08-10 | Outpatient (CLI) | payer MEDICARE, BC | LOC: M WHC 11:27 | PROVIDERS: ATTEND Internal Medicine Hematology | DX: Z12.31 Encounter for screening mammogram for malignant neoplasm of breast (principal); R92.343 Mammographic extreme density, bilateral breasts ==

== ENCOUNTER → 2024-01-07 | Outpatient (CLI) | payer MEDICARE, BC ==
[~2024-01-07] MED LIST changes: +AMLO2.5C6 PO; +CYAN500T14 PO; +VITA100093 PO
[2024-01-07 10:17] LABS: INR 1.02; PROTHROMBIN TIME 13.1 SECONDS (12.5-14.5)
[2024-01-07 10:19] LABS: HEMATOCRIT 40.7 % (36.0-47.0); HEMOGLOBIN 13.6 g/dl (12.0-15.5); MEAN CORPUSCULAR HEMOGLOBIN 31.6 pg (27.0-33.0); MEAN CORPUSCULAR HGB CONC 33.4 g/dl (32.0-36.5); MEAN CORPUSCULAR VOLUME 94.4 fl (80.0-96.0); RED BLOOD COUNT 4.31 10^6/uL (4.00-5.40); WHITE BLOOD COUNT 5.3 10^3/uL (4.0-10.0)
[2024-01-07 10:33] LABS: ALBUMIN 3.9 G/DL (3.2-5.2); ALKALINE PHOSPHATASE 83 U/L (46-116); ALT/SGPT 24 U/L (7.0-40); AST/SGOT 17 U/L (<34); BILIRUBIN,TOTAL 0.9 MG/DL (0.3-1.2); BLOOD UREA NITROGEN 16 MG/DL (9-23); CALCIUM LEVEL 8.9 MG/DL (8.3-10.6); CARBON DIOXIDE LEVEL 29 MMOL/L (20-31); CHLORIDE LEVEL 106 MMOL/L (98-107); CREATININE FOR GFR 0.56 MG/DL (0.55-1.30); GLOMERULAR FILTRATION RATE > 60.0 (>39); GLUCOSE, FASTING 94 MG/DL (74-106); POTASSIUM SERUM 4.3 MMOL/L (3.5-5.1); SODIUM LEVEL 139 MMOL/L (136-145); TOTAL PROTEIN 7.3 G/DL (5.7-8.2)
[2024-01-07 11:16] LABS: ERYTHROCYTE SEDIMENTATION RATE 15 mm/hr (0-30)
== END ==
LOC: M RAD 08:19
PROVIDERS: ATTEND Orthopaedic Surgery
DX: Z01.818 Encounter for other preprocedural examination (principal); M16.12 Unilateral primary osteoarthritis, left hip; J84.10 Pulmonary fibrosis, unspecified; R94.31 Abnormal electrocardiogram [ECG] [EKG]

== ENCOUNTER → 2024-08-01 | Outpatient (CLI) | payer MEDICARE, BC ==
[2024-08-01 12:34] LABS: C REACTIVE PROTEIN QUANTITATIV < 0.50 MG/DL (<1.0)
[2024-08-01 12:35] LABS: ALBUMIN 3.9 G/DL (3.2-5.2); ALKALINE PHOSPHATASE 71 U/L (35-104); ALT/SGPT 19 U/L (7.0-40); AST/SGOT 19 U/L (<34); BILIRUBIN,TOTAL 1.2 MG/DL (0.3-1.2); BLOOD UREA NITROGEN 19 MG/DL (9-23); CALCIUM LEVEL 9.3 MG/DL (8.3-10.6); CARBON DIOXIDE LEVEL 30 MMOL/L (20-31); CHLORIDE LEVEL 106 MMOL/L (98-107); CHOLESTEROL LEVEL 230 MG/DL (<200); CHOLESTEROL RISK RATIO 3.27 (<5); CREATININE FOR GFR 0.55 MG/DL (0.55-1.30); FREE T4 1.18 NG/DL (0.89-1.76); GLOMERULAR FILTRATION RATE > 90.0 (>39); GLUCOSE, FASTING 102 MG/DL (74-106); HDL CHOLESTEROL 70.3 MG/DL (>40); LDL CHOLESTEROL 142.7 MG/DL (<100); NON-HDL-C 159.7 MG/DL; POTASSIUM SERUM 4.2 MMOL/L (3.5-5.1); SODIUM LEVEL 144 MMOL/L (136-145); TOTAL PROTEIN 7.3 G/DL (5.7-8.2); TRIGLYCERIDES LEVEL 85 MG/DL (<150)
[2024-08-01 12:44] LABS: HEMOGLOBIN A1c 4.9 % (4.0-6.0)
[2024-08-01 12:58] LABS: CREATININE, URINE 126.7 MG/DL; MAU/CREAT RATIO 3.9 MCG/MG (0.0-30.0)
== END ==
LOC: M WUC 08:22
PROVIDERS: ATTEND Student in an Organized Health Care Education/Training Program
DX: E78.00 Pure hypercholesterolemia, unspecified (principal); R73.03 Prediabetes

== ENCOUNTER → 2024-08-21 | Outpatient (CLI) | payer MEDICARE, BC | LOC: M WHC 10:21 | PROVIDERS: ATTEND Student in an Organized Health Care Education/Training Program | DX: Z12.31 Encounter for screening mammogram for malignant neoplasm of breast (principal) ==

== ENCOUNTER → 2025-01-26 | Outpatient (CLI) | payer MEDICARE, BC ==
[2025-01-26 15:06] LABS: FREE T4 1.71 NG/DL (0.89-1.76)
== END ==
LOC: M WUC 12:00
PROVIDERS: ATTEND Nurse Practitioner Family
DX: E89.0 Postprocedural hypothyroidism (principal)